=== PATIENT | male | born 1955 | race Caucasian/White ===

== ENCOUNTER 2025-05-04 08:03 | Outpatient (RCR) | payer OTHER, SELFPAY | END 2025-05-04 23:59 | disposition home or self-care (01) | LOC: RPT 08:03 | PROVIDERS: ATTENDING PHYSICIAN Podiatrist; FAMILY PHYSICIAN Family Medicine | DX: M76.61 Achilles tendinitis, right leg (principal); Z73.6 Limitation of activities due to disability; R26.2 Difficulty in walking, not elsewhere classified; M62.81 Muscle weakness (generalized) | CPT/HCPCS: 97110; 97112; 97140; 97162 ==

== ENCOUNTER 2025-05-25 09:27 | Outpatient (RCR) | payer OTHER, SELFPAY | END 2025-05-25 23:59 | disposition home or self-care (01) | LOC: RPT 09:27 | PROVIDERS: ATTENDING PHYSICIAN Podiatrist; FAMILY PHYSICIAN Family Medicine | DX: M76.61 Achilles tendinitis, right leg (principal); Z73.6 Limitation of activities due to disability; R26.2 Difficulty in walking, not elsewhere classified; M62.81 Muscle weakness (generalized) | CPT/HCPCS: 97110; 97112; 97140; 97530 ==